=== PATIENT | male | born 1960 | race Caucasian/White ===

== ENCOUNTER → 2016-03-10 | Outpatient (CLI) | payer MEDICARE, MEDICAID ==
[~2016-03-10] MED LIST: ASPIRIN 81MG TA81 MG PO; BACTRIM DS 8001 TAB PO; BYETTA250 MCG/ML SC; CARTIA XT240 MG PO; CLONIDINE HYDR0.2 MG PO; GABAPENTIN300 MG PO; GLYBURIDE5 MG PO; LASIX40 MG PO; LEVOTHYROXIN0.075 M1 PO; LIPITOR20 MG PO; LISINOPRIL20 MG PO; MEDROL 4MG. DOSE4 MG PO; METFORMIN1000 MG PO; METHOCARBAMOL750 MG PO; OXCARBAZEPINE600 MG PO; PLAVIX75 MG PO; POTASSIUM CHLO10 ME3 PO; PRILOSEC20 M1 PO; SIMVASTATIN40 MG PO; TRAMADOL 50MG T50 MG PO
--- NOTE | 2016-03-10 18:05 | RADIOLOGY REPORT PS360 ---
US [id number] ORDERING PHYSICIAN : RONNA BUSH PATIENT AGE: 55 years GENDER: Male INDICATION: T2D, CHRONIC KIDNEY DISEASE 3 history of -[id number] TECHNIQUE: Ultrasound both right and left kidney... Of diabetes COMPARISON: None relevant FINDINGS : The kidneys appear normal in size and cortex well-maintained. Generous in thickness bilaterally. Upper dangelo perhaps subtle increase echogenicity of renal cortex bilaterally yields a slightly accentuated hypoechoic appearance renal pyramids bilaterally been seen for this age patient. Increased echogenicity of cortex can reflect underlying intrinsic, medical renal disease Right kidney: 10.5 cm in length x 6 cm x 7.4 cm Left kidney: 11.6 cm x 5.6 cm x 6.6 cm. IMPRESSION: --------- : Needle was no hydronephrosis nor mass. Suggestion subtle increased echogenicity of the renal cortex. -Nonspecific but can be reflection of intrinsic/medical renal disease.
--- NOTE | 2016-03-10 18:05 | RADIOLOGY REPORT PS360 ---
US [id number] ORDERING PHYSICIAN : RONNA BUSH PATIENT AGE: 55 years GENDER: Male INDICATION: T2D, CHRONIC KIDNEY DISEASE 3 history of [id number] TECHNIQUE: Ultrasound both right and left kidney... Of diabetes COMPARISON: None relevant FINDINGS : The kidneys appear normal in size and cortex well-maintained. Generous in thickness bilaterally. Upper dangelo perhaps subtle increase echogenicity of renal cortex bilaterally yields a slightly accentuated hypoechoic appearance renal pyramids bilaterally been seen for this age patient. Increased echogenicity of cortex can reflect underlying intrinsic, medical renal disease Right kidney: 10.5 cm in length x 6 cm x 7.4 cm Left kidney: 11.6 cm x 5.6 cm x 6.6 cm. IMPRESSION: --------- : Needle was no hydronephrosis nor mass. Suggestion subtle increased echogenicity of the renal cortex. -Nonspecific but can be reflection of intrinsic/medical renal disease.
== END ==
LOC: RAD 12:57
DX: N18.3 Chronic kidney disease, stage 3 (moderate) (principal); E11.21 Type 2 diabetes mellitus with diabetic nephropathy

== ENCOUNTER → 2016-06-10 | Outpatient (CLI) | payer MEDICARE ==
--- NOTE | 2016-06-10 10:14 | RADIOLOGY REPORT PS360 ---
CHEST(2 VIEWS-NOT PORTABLE) HISTORY: HTN,TOBACCO USE,DMII, ORDERING PHYSICIAN: MICHAEL ROSE PATIENT AGE: 56 years COMPARISON: 07/30/2015 FINDINGS: The cardiomediastinal silhouette and pulmonary vascularity are within normal limits. The lungs are clear without infiltrates, suspicious nodules, or pleural effusions. No change mild coarsening of the bronchovascular markings No acute bony abnormalities. Mild degenerative changes thoracic spine IMPRESSION: No change with no acute finding. Mild coarsening of the bronchovascular markings consistent with chronic peribronchial inflammatory change which may be seen with smokers lung
[2016-06-10 11:08] LABS: LYMPH # 0.8 K/mm3 (0.7-4.5); LYMPH % 9.6 % (10-50)
[2016-06-10 11:10] LABS: HEMOGLOBIN 13.5 g/dL (14.1-18.0)
[2016-06-10 11:30] LABS: URINE BILIRUBIN - DIPSTICK NEGATIVE (NEG); URINE BLOOD 1+ (NEG)
[2016-06-10 11:53] LABS: BUN 22 mg/dL (7-18)
[2016-06-10 11:54] LABS: GFR (ESTIMATED) 28 ML/MIN (>60)
== END ==
LOC: LAB 09:31 → RAD 09:31
PROVIDERS: Family Medicine
DX: E78.1 Pure hyperglyceridemia (principal); E03.9 Hypothyroidism, unspecified; E11.9 Type 2 diabetes mellitus without complications; I10 Essential (primary) hypertension; N18.3 Chronic kidney disease, stage 3 (moderate); Z72.0 Tobacco use